=== PATIENT | male | born 1950 | race Caucasian/White ===

== ENCOUNTER 2017-12-29 12:25 | Inpatient (IN) | payer MEDICARE, OTHER ==
[~2017-12-29] VITALS: Ht 177.8 cm; Wt 83.5 kg
[2017-12-29 13:00] VITALS: BP 131/62
[2017-12-29 14:48] LABS: GLUCOMETER DEV NAME(LOC) 2WR 1B; GLUCOSE,POINT OF CARE 85 MG/DL (70-110)
[2017-12-29 15:15] VITALS: BP 139/90
[2017-12-29] MEDS ORDERED: CARV3 PO (15:27)
[2017-12-29] MEDS ORDERED: FERR-89 PO (15:30)
[2017-12-29] MEDS ORDERED: APIX5TAB PO (15:30)
[2017-12-29] MEDS ORDERED: MULT-248 PO (15:35)
[2017-12-29] MEDS ORDERED: BUME1TAB17 PO (15:35)
[2017-12-29] MEDS ORDERED: INSNOV SQ (15:35)
[2017-12-29] MEDS ORDERED: OMEP20 PO (15:35)
[2017-12-29] MEDS ORDERED: DOCUSATE SODIUM 283 MG/5 ML MINI-ENEMA PR PRN (15:45)
[2017-12-29] MEDS ORDERED: DEXTROSE 50%-WATER 25 GM/50 ML SYRINGE IVP PRN (17:15)
[2017-12-29 17:58] LABS: GLUCOMETER DEV NAME(LOC) 2WR 2E; GLUCOSE,POINT OF CARE 144 MG/DL (70-110)
[2017-12-29] MEDS: INSULIN LISPRO 100 UNITS/ML SQ PRN ×2 (19:10→22:13)
[2017-12-29 20:47] VITALS: BP 116/66
[2017-12-29] MEDS: ACETAMINOPHEN 325 MG TABLET PO PRN (20:50)
[2017-12-29] MEDS: APIXABAN 5 MG TABLET PO SCH (20:50)
[2017-12-29] MEDS: SENNA 187 MG TABLET PO SCH (20:50)
[2017-12-29] MEDS: BUMETANIDE 1 MG TABLET PO SCH (20:50)
[2017-12-29] MEDS: CARVEDILOL 3.125 MG TABLET PO SCH (20:50)
[2017-12-29] MEDS: DOCUSATE SODIUM 100 MG CAPSULE PO SCH (20:51)
[2017-12-29] MEDS: INSULIN GLARGINE,HUM.REC.ANLOG 100 UNITS/ML SQ SCH (22:12)
[2017-12-29 22:49] LABS: GLUCOMETER DEV NAME(LOC) 2WR 1B; GLUCOSE,POINT OF CARE 252 MG/DL (70-110)
[2017-12-30 01:00] VITALS: BP 114/59
[2017-12-30] MEDS: ACETAMINOPHEN 325 MG TABLET PO PRN ×5 (01:00→23:28)
[2017-12-30] MEDS: MELATONIN 3 MG TABLET PO PRN ×2 (01:00→21:06)
[2017-12-30] MEDS ORDERED: SIMETHICONE 80 MG CHEWABLE TABLET CHEW PRN (01:15)
[2017-12-30 01:21] LABS: BILIRUBIN,URINE NEGATIVE (NEGATIVE); GLUCOSE, URINE (UA) NEGATIVE (NEGATIVE); KETONES,URINE NEGATIVE (NEGATIVE); LEUKOCYTE ESTERASE ,URINE TRACE (NEGATIVE); NITRATE,URINE NEGATIVE (NEGATIVE); OCCULT BLOOD,URINE LARGE (NEGATIVE); PH,URINE 6.5 (5.0-8.0); PROTEIN,URINE NEGATIVE (NEGATIVE)
[2017-12-30 01:24] LABS: APPEARANCE,URINE HAZY (CLEAR)
[2017-12-30 01:37] LABS: BACTERIA,URINE Rare /HPF (None Seen); YEAST,URINE Few /HPF (None Seen)
[2017-12-30] MEDS: CefTRIAXone SODIUM 1 GM in DEXTROSE 5%-WATER 10 ML IV SCH (05:44)
[2017-12-30] MEDS: OMEPRAZOLE 20 MG CAPSULE PO SCH (05:44)
[2017-12-30 06:04] LABS: BASOPHILS % (AUTO) 0.8 % (0.0-2.0); EOSINOPHILS % (AUTO) 2.9 % (1.0-6.0); HEMATOCRIT 25.1 % (41-53); HEMOGLOBIN 8.8 g/dL (13.5-17.5); LYMPHOCYTES # (AUTO) 1.6 K/uL (1.0-4.8); LYMPHOCYTES % (AUTO) 22.6 % (22.0-44.0); MEAN CORPUSCULAR HEMOGLOBIN 29.2 pg (26.0-34.0); MEAN CORPUSCULAR HGB CONC 34.9 G/dL (31.0-37.0); MEAN CORPUSCULAR VOLUME 84 fL (80-100); MONOCYTES # (AUTO) 0.6 K/uL (0.1-1.0); MONOCYTES % (AUTO) 8.2 % (2.0-9.0); NEUTROPHILS # (AUTO) 4.5 K/uL (1.8-7.7); NEUTROPHILS % (AUTO) 65.5 % (40.0-70.0); PLATELET COUNT (AUTO) 226 K/uL (150-450); RED CELL DISTRIBUTION WIDTH 18.6 % (11.5-14.5)
[2017-12-30 06:09] LABS: GLUCOMETER DEV NAME(LOC) 2WR 2E; GLUCOSE,POINT OF CARE 136 MG/DL (70-110)
[2017-12-30 07:00] LABS: ALANINE AMINOTRANSFERASE 17 U/L (12-78); ALBUMIN 1.9 g/dL (3.4-5.0); ALKALINE PHOSPHATASE 111 U/L (46-116); ANION GAP 5 mmol/L (8-16); ASPARTATE AMINOTRANSFERASE 23 U/L (15-37); BILIRUBIN,TOTAL 0.4 mg/dL (0.1-1.0); CALCIUM, TOTAL 8.3 mg/dL (8.8-10.5); CARBON DIOXIDE 31 mmol/L (22-29); CHLORIDE 101 mmol/L (98-107); CREATININE 1.07 mg/dL (0.60-1.30); GLOMERULAR FILTR. RATE CALC > 60 mL/min (>60); GLUCOSE,RANDOM 133 mg/dL (70-110); POTASSIUM 4.3 mmol/L (3.5-5.1); SODIUM SERUM 137 mmol/L (136-145); TOTAL PROTEIN, SERUM 6.3 g/dL (6.4-8.2); UREA NITROGEN, BLOOD 17 mg/dL (7-18)
[2017-12-30] MEDS: ASCORBIC ACID 500 MG TABLET PO SCH (08:56)
[2017-12-30] MEDS: CARVEDILOL 3.125 MG TABLET PO SCH ×2 (08:56→21:06)
[2017-12-30] MEDS: CHOLECALCIFEROL (VIT D3) 1,000 UNITS TABLET PO SCH (08:56)
[2017-12-30] MEDS: APIXABAN 5 MG TABLET PO SCH ×2 (08:56→21:06)
[2017-12-30] MEDS: BUMETANIDE 1 MG TABLET PO SCH ×2 (08:56→21:05)
[2017-12-30] MEDS: DOCUSATE SODIUM 100 MG CAPSULE PO SCH ×2 (08:56→21:05)
[2017-12-30] MEDS: MULTIVITAMINS, THERAPEUTIC TABLET PO SCH (08:56)
[2017-12-30 10:03] VITALS: BP 132/67
[2017-12-30 12:39] LABS: GLUCOMETER DEV NAME(LOC) 2WR 2E; GLUCOSE,POINT OF CARE 231 MG/DL (70-110)
[2017-12-30] MEDS: INSULIN LISPRO 100 UNITS/ML SQ PRN ×3 (12:39→21:29)
[2017-12-30 15:13] VITALS: BP 129/74
[2017-12-30] MEDS: 0.9% SODIUM CHLORIDE 10 ML SYRINGE IVP SCH ×2 (16:12→23:43)
[2017-12-30 17:44] LABS: GLUCOMETER DEV NAME(LOC) 2WR 2E; GLUCOSE,POINT OF CARE 284 MG/DL (70-110)
[2017-12-30] MEDS: SENNA 187 MG TABLET PO SCH (21:06)
[2017-12-30 21:07] VITALS: BP 124/62
[2017-12-30] MEDS: INSULIN GLARGINE,HUM.REC.ANLOG 100 UNITS/ML SQ SCH (21:22)
[2017-12-30 22:08] LABS: GLUCOMETER DEV NAME(LOC) 2WR 1B; GLUCOSE,POINT OF CARE 198 MG/DL (70-110)
[2017-12-30 23:28] VITALS: BP 111/55
[2017-12-31] MEDS: ACETAMINOPHEN 325 MG TABLET PO PRN (03:45)
[2017-12-31] MEDS: OMEPRAZOLE 20 MG CAPSULE PO SCH (05:50)
[2017-12-31] MEDS: CefTRIAXone SODIUM 1 GM in DEXTROSE 5%-WATER 10 ML IV SCH (05:51)
[2017-12-31 06:24] LABS: GLUCOMETER DEV NAME(LOC) 2WR 1B; GLUCOSE,POINT OF CARE 102 MG/DL (70-110)
[2017-12-31 08:00] VITALS: BP 136/76
[2017-12-31] MEDS ORDERED: HYDROCODONE/ACETAMINOPHEN 5-325 MG TABLET PO PRN (08:00)
[2017-12-31] MEDS: BUMETANIDE 1 MG TABLET PO SCH ×2 (08:09→21:26)
[2017-12-31] MEDS: ASCORBIC ACID 500 MG TABLET PO SCH (08:09)
[2017-12-31] MEDS: APIXABAN 5 MG TABLET PO SCH ×2 (08:09→21:26)
[2017-12-31] MEDS: MULTIVITAMINS, THERAPEUTIC TABLET PO SCH (08:09)
[2017-12-31] MEDS: CARVEDILOL 3.125 MG TABLET PO SCH ×2 (08:09→21:26)
[2017-12-31] MEDS: DOCUSATE SODIUM 100 MG CAPSULE PO SCH ×2 (08:09→21:26)
[2017-12-31] MEDS: 0.9% SODIUM CHLORIDE 10 ML SYRINGE IVP SCH ×2 (08:09→15:14)
[2017-12-31] MEDS: METOLAZONE 5 MG TABLET PO SCH (08:09)
[2017-12-31] MEDS: CHOLECALCIFEROL (VIT D3) 1,000 UNITS TABLET PO SCH (08:10)
[2017-12-31] MEDS: HYDROCODONE/ACETAMINOPHEN 5-325 MG TABLET PO PRN ×3 (08:10→23:03)
[2017-12-31 12:54] LABS: GLUCOMETER DEV NAME(LOC) 2WR 2E; GLUCOSE,POINT OF CARE 237 MG/DL (70-110)
[2017-12-31] MEDS: INSULIN LISPRO 100 UNITS/ML SQ PRN ×2 (14:32→21:43)
[2017-12-31 15:05] VITALS: BP 127/71
[2017-12-31 18:24] LABS: GLUCOMETER DEV NAME(LOC) 2WR 1B; GLUCOSE,POINT OF CARE 178 MG/DL (70-110)
[2017-12-31] MEDS: SENNA 187 MG TABLET PO SCH ×2 (21:00→21:26)
[2017-12-31 21:33] VITALS: BP 129/70
[2017-12-31] MEDS: INSULIN GLARGINE,HUM.REC.ANLOG 100 UNITS/ML SQ SCH (21:42)
[2017-12-31] MEDS: MELATONIN 3 MG TABLET PO PRN (21:44)
[2017-12-31 22:13] LABS: GLUCOMETER DEV NAME(LOC) 2WR 1B; GLUCOSE,POINT OF CARE 245 MG/DL (70-110)
[2018-01-01 00:01] VITALS: BP 99/54
[2018-01-01] MEDS: 0.9% SODIUM CHLORIDE 10 ML SYRINGE IVP SCH ×4 (00:14→23:41)
[2018-01-01] MEDS: ACETAMINOPHEN 325 MG TABLET PO PRN ×3 (01:47→20:49)
[2018-01-01] MEDS: HYDROCODONE/ACETAMINOPHEN 5-325 MG TABLET PO PRN ×2 (03:36→12:54)
[2018-01-01] MEDS: CefTRIAXone SODIUM 1 GM in DEXTROSE 5%-WATER 10 ML IV SCH (05:28)
[2018-01-01] MEDS: OMEPRAZOLE 20 MG CAPSULE PO SCH (05:28)
[2018-01-01 06:00] VITALS: BP 126/71
[2018-01-01 06:34] LABS: GLUCOMETER DEV NAME(LOC) 2WR 2E; GLUCOSE,POINT OF CARE 207 MG/DL (70-110)
[2018-01-01 06:59] LABS: BASOPHILS % (AUTO) 0.9 % (0.0-2.0); EOSINOPHILS % (AUTO) 2.4 % (1.0-6.0); HEMATOCRIT 25.9 % (41-53); HEMOGLOBIN 8.8 g/dL (13.5-17.5); LYMPHOCYTES # (AUTO) 1.7 K/uL (1.0-4.8); LYMPHOCYTES % (AUTO) 20.8 % (22.0-44.0); MEAN CORPUSCULAR HEMOGLOBIN 28.8 pg (26.0-34.0); MEAN CORPUSCULAR VOLUME 85 fL (80-100); MONOCYTES # (AUTO) 0.6 K/uL (0.1-1.0); MONOCYTES % (AUTO) 7.8 % (2.0-9.0); NEUTROPHILS # (AUTO) 5.5 K/uL (1.8-7.7); NEUTROPHILS % (AUTO) 68.1 % (40.0-70.0); PLATELET COUNT (AUTO) 217 K/uL (150-450); RED BLOOD CELL COUNT(AUTO) 3.05 MIL/uL (4.50-5.90); RED CELL DISTRIBUTION WIDTH 19.9 % (11.5-14.5)
[2018-01-01 08:07] VITALS: BP 130/73
[2018-01-01] MEDS: BUMETANIDE 1 MG TABLET PO SCH ×2 (08:19→20:49)
[2018-01-01] MEDS: CHOLECALCIFEROL (VIT D3) 1,000 UNITS TABLET PO SCH (08:19)
[2018-01-01] MEDS: APIXABAN 5 MG TABLET PO SCH ×2 (08:19→20:49)
[2018-01-01] MEDS: ASCORBIC ACID 500 MG TABLET PO SCH (08:19)
[2018-01-01] MEDS: MULTIVITAMINS, THERAPEUTIC TABLET PO SCH (08:19)
[2018-01-01] MEDS: CARVEDILOL 3.125 MG TABLET PO SCH ×2 (08:19→20:50)
[2018-01-01] MEDS: DOCUSATE SODIUM 100 MG CAPSULE PO SCH ×2 (08:19→20:50)
[2018-01-01] MEDS: INSULIN LISPRO 100 UNITS/ML SQ PRN ×3 (08:22→21:28)
[2018-01-01 12:18] LABS: GLUCOMETER DEV NAME(LOC) 2WR 2E; GLUCOSE,POINT OF CARE 96 MG/DL (70-110)
[2018-01-01 15:50] VITALS: BP 110/74
[2018-01-01 17:18] LABS: GLUCOMETER DEV NAME(LOC) 2WR 2E; GLUCOSE,POINT OF CARE 177 MG/DL (70-110)
[2018-01-01] MEDS: CARBAMIDE PEROXIDE 6.5% 15 ML OTIC SOLUTION AU SCH (20:48)
[2018-01-01] MEDS: SENNA 187 MG TABLET PO SCH (20:51)
[2018-01-01 20:59] VITALS: BP 144/72
[2018-01-01] MEDS: INSULIN GLARGINE,HUM.REC.ANLOG 100 UNITS/ML SQ SCH (21:27)
[2018-01-02] MEDS: MELATONIN 3 MG TABLET PO PRN (00:13)
[2018-01-02 00:15] VITALS: BP 136/71
[2018-01-02] MEDS: HYDROCODONE/ACETAMINOPHEN 5-325 MG TABLET PO PRN ×2 (01:09→08:27)
[2018-01-02 03:14] LABS: GLUCOMETER DEV NAME(LOC) 2WR 2E; GLUCOSE,POINT OF CARE 194 MG/DL (70-110)
[2018-01-02] MEDS: OMEPRAZOLE 20 MG CAPSULE PO SCH (05:04)
[2018-01-02] MEDS: CefTRIAXone SODIUM 1 GM in DEXTROSE 5%-WATER 10 ML IV SCH (05:04)
[2018-01-02] MEDS: ACETAMINOPHEN 325 MG TABLET PO PRN (05:14)
[2018-01-02 05:54] LABS: GLUCOMETER DEV NAME(LOC) 2WR 2E; GLUCOSE,POINT OF CARE 92 MG/DL (70-110)
[2018-01-02] MEDS ORDERED: DiphenhydrAMINE HCL 25 MG CAPSULE PO PRN (07:45)
[2018-01-02 07:56] VITALS: BP 136/75
[2018-01-02] MEDS: CARBAMIDE PEROXIDE 6.5% 15 ML OTIC SOLUTION AU SCH ×2 (08:13→21:40)
[2018-01-02] MEDS: BUMETANIDE 1 MG TABLET PO SCH ×2 (08:13→21:40)
[2018-01-02] MEDS: APIXABAN 5 MG TABLET PO SCH ×2 (08:13→21:40)
[2018-01-02] MEDS: METOLAZONE 5 MG TABLET PO SCH (08:13)
[2018-01-02] MEDS: MULTIVITAMINS, THERAPEUTIC TABLET PO SCH (08:13)
[2018-01-02] MEDS: CHOLECALCIFEROL (VIT D3) 1,000 UNITS TABLET PO SCH (08:13)
[2018-01-02] MEDS: CARVEDILOL 3.125 MG TABLET PO SCH ×2 (08:13→21:40)
[2018-01-02] MEDS: DOCUSATE SODIUM 100 MG CAPSULE PO SCH ×2 (08:13→21:40)
[2018-01-02] MEDS: 0.9% SODIUM CHLORIDE 10 ML SYRINGE IVP SCH ×3 (08:14→23:28)
[2018-01-02] MEDS: ASCORBIC ACID 500 MG TABLET PO SCH (08:15)
[2018-01-02] MEDS ORDERED: HYDROCODONE/ACETAMINOPHEN 10-325 MG TABLET PO PRN (10:00)
[2018-01-02 12:54] LABS: GLUCOMETER DEV NAME(LOC) 2WR 1B; GLUCOSE,POINT OF CARE 144 MG/DL (70-110)
[2018-01-02] MEDS: INSULIN LISPRO 100 UNITS/ML SQ PRN ×2 (13:04→22:01)
[2018-01-02] MEDS: HYDROCODONE/ACETAMINOPHEN 10-325 MG TABLET PO PRN ×2 (13:29→23:04)
[2018-01-02 15:22] VITALS: BP 110/60
[2018-01-02 18:29] LABS: GLUCOMETER DEV NAME(LOC) 2WR 2E; GLUCOSE,POINT OF CARE 119 MG/DL (70-110)
[2018-01-02] MEDS: TraZODone HCL 100 MG TABLET PO SCH (21:40)
[2018-01-02] MEDS: SENNA 187 MG TABLET PO SCH (21:40)
[2018-01-02 21:44] VITALS: BP 137/77
[2018-01-02] MEDS: INSULIN GLARGINE,HUM.REC.ANLOG 100 UNITS/ML SQ SCH (21:59)
[2018-01-02 22:14] LABS: GLUCOMETER DEV NAME(LOC) 2WR 2E; GLUCOSE,POINT OF CARE 228 MG/DL (70-110)
[2018-01-02 23:59] VITALS: BP 139/67
[2018-01-03] MEDS: HYDROCODONE/ACETAMINOPHEN 10-325 MG TABLET PO PRN ×2 (03:24→10:19)
[2018-01-03] MEDS: CefTRIAXone SODIUM 1 GM in DEXTROSE 5%-WATER 10 ML IV SCH (05:08)
[2018-01-03] MEDS: OMEPRAZOLE 20 MG CAPSULE PO SCH (05:53)
[2018-01-03 06:29] LABS: GLUCOMETER DEV NAME(LOC) 2WR 1B; GLUCOSE,POINT OF CARE 80 MG/DL (70-110)
[2018-01-03 08:30] VITALS: BP 131/72
[2018-01-03] MEDS: DOCUSATE SODIUM 100 MG CAPSULE PO SCH ×2 (09:28→20:19)
[2018-01-03] MEDS: MULTIVITAMINS, THERAPEUTIC TABLET PO SCH (09:28)
[2018-01-03] MEDS: 0.9% SODIUM CHLORIDE 10 ML SYRINGE IVP SCH ×3 (09:28→23:24)
[2018-01-03] MEDS: CHOLECALCIFEROL (VIT D3) 1,000 UNITS TABLET PO SCH (09:28)
[2018-01-03] MEDS: CARVEDILOL 3.125 MG TABLET PO SCH ×2 (09:28→20:19)
[2018-01-03] MEDS: ASCORBIC ACID 500 MG TABLET PO SCH (09:28)
[2018-01-03] MEDS: APIXABAN 5 MG TABLET PO SCH ×2 (09:28→20:19)
[2018-01-03] MEDS: BUMETANIDE 1 MG TABLET PO SCH ×2 (09:28→20:19)
[2018-01-03] MEDS: CARBAMIDE PEROXIDE 6.5% 15 ML OTIC SOLUTION AU SCH ×2 (09:28→20:19)
[2018-01-03] MEDS ORDERED: SODIUM CL IRRIG SOLN BOTTLE 250 ML IRRIG ONE (09:33)
[2018-01-03 13:12] LABS: % IRON SATURATION 11.6 % (30-44); IRON, SERUM 34 mcg/dL (50-175); TOTAL IRON BINDING CAPACITY 292 mcg/dL (250-450)
[2018-01-03 13:22] LABS: CHOL/HDL RATIO 3.3 (4.2-7.3); CHOLESTEROL 118 mg/dL (131-200); HDL CHOLESTEROL 36 mg/dL (40-60); LDL CHOL (CALC.) 66 mg/dL (0-130); THYROID STIMULATING HORMONE 4.01 uIU/mL (0.36-3.74); TRIGLYCERIDES 82 mg/dL (15-150)
[2018-01-03 13:24] LABS: B-TYPE NATRIURETIC PEPTIDE 368 pg/mL (0-100)
[2018-01-03 13:28] LABS: GLUCOMETER DEV NAME(LOC) 2WR 2E; GLUCOSE,POINT OF CARE 204 MG/DL (70-110)
[2018-01-03] MEDS: DESLORATADINE 5 MG PO SCH (13:45)
[2018-01-03 13:53] LABS: FOLATE SERUM 23.9 ng/mL (5.4-)
[2018-01-03 15:36] VITALS: BP 111/74
[2018-01-03 18:04] LABS: GLUCOMETER DEV NAME(LOC) 2WR 1B; GLUCOSE,POINT OF CARE 179 MG/DL (70-110)
[2018-01-03] MEDS: INSULIN LISPRO 100 UNITS/ML SQ PRN ×2 (19:08→20:31)
[2018-01-03 19:48] VITALS: BP 126/65
[2018-01-03] MEDS: SENNA 187 MG TABLET PO SCH (20:19)
[2018-01-03] MEDS: GABAPENTIN 300 MG CAPSULE PO SCH (20:19)
[2018-01-03] MEDS: TraZODone HCL 100 MG TABLET PO SCH (20:19)
[2018-01-03] MEDS: INSULIN GLARGINE,HUM.REC.ANLOG 100 UNITS/ML SQ SCH (20:30)
[2018-01-03 22:33] LABS: GLUCOMETER DEV NAME(LOC) 2WR 1B; GLUCOSE,POINT OF CARE 264 MG/DL (70-110)
[2018-01-04 00:45] VITALS: BP 116/66
[2018-01-04] MEDS: HYDROCODONE/ACETAMINOPHEN 10-325 MG TABLET PO PRN ×4 (00:45→23:45)
[2018-01-04] MEDS: CefTRIAXone SODIUM 1 GM in DEXTROSE 5%-WATER 10 ML IV SCH (05:29)
[2018-01-04] MEDS: OMEPRAZOLE 20 MG CAPSULE PO SCH (06:08)
[2018-01-04 06:53] LABS: GLUCOMETER DEV NAME(LOC) 2WR 2E; GLUCOSE,POINT OF CARE 52 MG/DL (70-110)
[2018-01-04 06:53] LABS: GLUCOMETER DEV NAME(LOC) 2WR 2E; GLUCOSE,POINT OF CARE 79 MG/DL (70-110)
[2018-01-04 07:53] VITALS: BP 125/82
[2018-01-04] MEDS: APIXABAN 5 MG TABLET PO SCH ×2 (11:09→20:59)
[2018-01-04] MEDS: ASCORBIC ACID 500 MG TABLET PO SCH (11:09)
[2018-01-04] MEDS: DOCUSATE SODIUM 100 MG CAPSULE PO SCH ×2 (11:09→21:00)
[2018-01-04] MEDS: CHOLECALCIFEROL (VIT D3) 1,000 UNITS TABLET PO SCH (11:09)
[2018-01-04] MEDS: MULTIVITAMINS, THERAPEUTIC TABLET PO SCH (11:10)
[2018-01-04] MEDS: BUMETANIDE 1 MG TABLET PO SCH ×2 (11:10→20:58)
[2018-01-04] MEDS: CARVEDILOL 3.125 MG TABLET PO SCH ×2 (11:10→20:58)
[2018-01-04] MEDS: ACETAMINOPHEN 325 MG TABLET PO PRN (11:19)
[2018-01-04] MEDS: 0.9% SODIUM CHLORIDE 10 ML SYRINGE IVP SCH ×3 (11:21→23:30)
[2018-01-04] MEDS ORDERED: SOD FERRIC GLUC COMPLX/SUCROSE 125 MG in SODIUM CHLORIDE 0.9% 100 ML IV ONE (12:30)
[2018-01-04 13:29] LABS: GLUCOMETER DEV NAME(LOC) 2WR 1B; GLUCOSE,POINT OF CARE 218 MG/DL (70-110)
[2018-01-04] MEDS ORDERED: SODIUM CHLORIDE 0.9% 100 ML ONE (14:18)
[2018-01-04] MEDS: DESLORATADINE 5 MG PO SCH (14:38)
[2018-01-04 15:20] VITALS: BP 121/73
[2018-01-04 18:29] LABS: GLUCOMETER DEV NAME(LOC) 2WR 1B; GLUCOSE,POINT OF CARE 171 MG/DL (70-110)
[2018-01-04] MEDS: INSULIN LISPRO 100 UNITS/ML SQ PRN ×2 (18:43→21:08)
[2018-01-04 20:34] LABS: GLUCOMETER DEV NAME(LOC) 2WR 2E; GLUCOSE,POINT OF CARE 222 MG/DL (70-110)
[2018-01-04 20:40] VITALS: BP 120/66
[2018-01-04] MEDS: GABAPENTIN 300 MG CAPSULE PO SCH (20:58)
[2018-01-04] MEDS: TraZODone HCL 100 MG TABLET PO SCH (20:59)
[2018-01-04] MEDS: SENNA 187 MG TABLET PO SCH (21:00)
[2018-01-04] MEDS ORDERED: INSULIN GLARGINE,HUM.REC.ANLOG 100 UNITS/ML SQ SCH (21:00)
[2018-01-04] MEDS: INSULIN GLARGINE,HUM.REC.ANLOG 100 UNITS/ML SQ SCH (21:07)
[2018-01-04 23:38] VITALS: BP 114/63
[2018-01-04 23:45] VITALS: BP 114/63
[2018-01-05] MEDS: CefTRIAXone SODIUM 1 GM in DEXTROSE 5%-WATER 10 ML IV SCH (05:29)
[2018-01-05] MEDS: HYDROCODONE/ACETAMINOPHEN 10-325 MG TABLET PO PRN (05:49)
[2018-01-05] MEDS: OMEPRAZOLE 20 MG CAPSULE PO SCH (05:50)
[2018-01-05 05:58] LABS: GLUCOMETER DEV NAME(LOC) 2WR 2E; GLUCOSE,POINT OF CARE 40 MG/DL (70-110)
[2018-01-05 05:58] LABS: GLUCOMETER DEV NAME(LOC) 2WR 2E; GLUCOSE,POINT OF CARE 179 MG/DL (70-110)
[2018-01-05 06:46] LABS: BASOPHILS % (AUTO) 0.8 % (0.0-2.0); EOSINOPHILS % (AUTO) 2.9 % (1.0-6.0); HEMATOCRIT 29.3 % (41-53); LYMPHOCYTES # (AUTO) 1.6 K/uL (1.0-4.8); LYMPHOCYTES % (AUTO) 22.8 % (22.0-44.0); MEAN CORPUSCULAR HEMOGLOBIN 28.9 pg (26.0-34.0); MEAN CORPUSCULAR VOLUME 85 fL (80-100); MONOCYTES # (AUTO) 0.5 K/uL (0.1-1.0); MONOCYTES % (AUTO) 7.3 % (2.0-9.0); NEUTROPHILS # (AUTO) 4.8 K/uL (1.8-7.7); NEUTROPHILS % (AUTO) 66.2 % (40.0-70.0); PLATELET COUNT (AUTO) 170 K/uL (150-450); RED BLOOD CELL COUNT(AUTO) 3.44 MIL/uL (4.50-5.90); RED CELL DISTRIBUTION WIDTH 20.4 % (11.5-14.5)
[2018-01-05 07:00] LABS: CALCIUM, TOTAL 8.6 mg/dL (8.8-10.5); CREATININE 1.25 mg/dL (0.60-1.30); POTASSIUM 3.7 mmol/L (3.5-5.1)
[2018-01-05 07:30] VITALS: BP 109/66
[2018-01-05] MEDS: MetFORMIN HCL 500 MG TABLET PO SCH ×2 (07:30→17:30)
[2018-01-05] MEDS: ASCORBIC ACID 500 MG TABLET PO SCH (08:24)
[2018-01-05] MEDS: BUMETANIDE 1 MG TABLET PO SCH ×2 (08:24→21:38)
[2018-01-05] MEDS: DESLORATADINE 5 MG PO SCH (08:25)
[2018-01-05] MEDS: DOCUSATE SODIUM 100 MG CAPSULE PO SCH ×2 (08:25→21:00)
[2018-01-05] MEDS: CARVEDILOL 3.125 MG TABLET PO SCH ×2 (08:25→21:39)
[2018-01-05] MEDS: MULTIVITAMINS, THERAPEUTIC TABLET PO SCH (08:25)
[2018-01-05] MEDS: APIXABAN 5 MG TABLET PO SCH ×2 (08:25→21:39)
[2018-01-05] MEDS: CHOLECALCIFEROL (VIT D3) 1,000 UNITS TABLET PO SCH (08:25)
[2018-01-05] MEDS: 0.9% SODIUM CHLORIDE 10 ML SYRINGE IVP SCH ×3 (08:26→23:27)
[2018-01-05 08:34] LABS: GLUCOMETER DEV NAME(LOC) 2WR 2E; GLUCOSE,POINT OF CARE 102 MG/DL (70-110)
[2018-01-05 12:39] LABS: GLUCOMETER DEV NAME(LOC) 2WR 1B; GLUCOSE,POINT OF CARE 103 MG/DL (70-110)
[2018-01-05 15:44] VITALS: BP 120/65
[2018-01-05 18:04] LABS: GLUCOMETER DEV NAME(LOC) 2WR 1B; GLUCOSE,POINT OF CARE 209 MG/DL (70-110)
[2018-01-05] MEDS: INSULIN LISPRO 100 UNITS/ML SQ PRN ×2 (18:29→21:49)
[2018-01-05] MEDS: SENNA 187 MG TABLET PO SCH (21:00)
[2018-01-05 21:31] VITALS: BP 121/69
[2018-01-05] MEDS: TraZODone HCL 100 MG TABLET PO SCH (21:39)
[2018-01-05] MEDS: GABAPENTIN 300 MG CAPSULE PO SCH (21:39)
[2018-01-05] MEDS: INSULIN GLARGINE,HUM.REC.ANLOG 100 UNITS/ML SQ SCH (21:48)
[2018-01-06] VITALS: BP 111/54
[2018-01-06 04:29] LABS: GLUCOMETER DEV NAME(LOC) 2WR 1B; GLUCOSE,POINT OF CARE 226 MG/DL (70-110)
[2018-01-06] MEDS: OMEPRAZOLE 20 MG CAPSULE PO SCH (05:27)
[2018-01-06] MEDS: CefTRIAXone SODIUM 1 GM in DEXTROSE 5%-WATER 10 ML IV SCH (05:27)
[2018-01-06 06:24] LABS: GLUCOMETER DEV NAME(LOC) 2WR 1B; GLUCOSE,POINT OF CARE 64 MG/DL (70-110)
[2018-01-06 06:29] LABS: BASOPHILS % (AUTO) 0.7 % (0.0-2.0); EOSINOPHILS % (AUTO) 1.9 % (1.0-6.0); HEMATOCRIT 26.7 % (41-53); HEMOGLOBIN 9.2 g/dL (13.5-17.5); LYMPHOCYTES # (AUTO) 1.7 K/uL (1.0-4.8); LYMPHOCYTES % (AUTO) 22.1 % (22.0-44.0); MEAN CORPUSCULAR HEMOGLOBIN 29.1 pg (26.0-34.0); MEAN CORPUSCULAR HGB CONC 34.4 G/dL (31.0-37.0); MEAN CORPUSCULAR VOLUME 84 fL (80-100); MONOCYTES # (AUTO) 0.6 K/uL (0.1-1.0); MONOCYTES % (AUTO) 7.4 % (2.0-9.0); NEUTROPHILS # (AUTO) 5.3 K/uL (1.8-7.7); NEUTROPHILS % (AUTO) 67.9 % (40.0-70.0); PLATELET COUNT (AUTO) 154 K/uL (150-450); RED BLOOD CELL COUNT(AUTO) 3.17 MIL/uL (4.50-5.90); RED CELL DISTRIBUTION WIDTH 20.6 % (11.5-14.5)
[2018-01-06 06:35] LABS: INR 1.3 (0.9-1.1); PROTHROMBIN TIME 13.3 SEC (9.4-11.6)
[2018-01-06 06:45] LABS: GLUCOMETER DEV NAME(LOC) 2WR 2E; GLUCOSE,POINT OF CARE 192 MG/DL (70-110)
[2018-01-06 06:48] LABS: ALBUMIN 2.3 g/dL (3.4-5.0); BILIRUBIN,TOTAL 0.4 mg/dL (0.1-1.0); CALCIUM, TOTAL 8.6 mg/dL (8.8-10.5); CREATININE 1.35 mg/dL (0.60-1.30); MAGNESIUM 1.9 mg/dL (1.80-2.40); POTASSIUM 3.7 mmol/L (3.5-5.1)
[2018-01-06] MEDS: MetFORMIN HCL 500 MG TABLET PO SCH ×2 (07:30→17:26)
[2018-01-06 07:50] VITALS: BP 105/54
[2018-01-06] MEDS: 0.9% SODIUM CHLORIDE 10 ML SYRINGE IVP SCH ×2 (09:29→17:27)
[2018-01-06 09:30] LABS: APPEARANCE,URINE CLEAR (CLEAR); BILIRUBIN,URINE NEGATIVE (NEGATIVE); GLUCOSE, URINE (UA) NEGATIVE (NEGATIVE); KETONES,URINE NEGATIVE (NEGATIVE); LEUKOCYTE ESTERASE ,URINE NEGATIVE (NEGATIVE); NITRATE,URINE NEGATIVE (NEGATIVE); OCCULT BLOOD,URINE SMALL (NEGATIVE); PROTEIN,URINE NEGATIVE (NEGATIVE); UROBILINOGEN,URINE 0.2 mg/dL (<=1.0)
[2018-01-06] MEDS: APIXABAN 5 MG TABLET PO SCH ×2 (09:30→21:55)
[2018-01-06] MEDS: CHOLECALCIFEROL (VIT D3) 1,000 UNITS TABLET PO SCH (09:30)
[2018-01-06] MEDS: ASCORBIC ACID 500 MG TABLET PO SCH (09:30)
[2018-01-06] MEDS: BUMETANIDE 1 MG TABLET PO SCH ×2 (09:30→21:54)
[2018-01-06] MEDS: DESLORATADINE 5 MG PO SCH (09:30)
[2018-01-06] MEDS: MULTIVITAMINS, THERAPEUTIC TABLET PO SCH (09:30)
[2018-01-06] MEDS: CARVEDILOL 3.125 MG TABLET PO SCH ×2 (09:30→21:55)
[2018-01-06] MEDS: DOCUSATE SODIUM 100 MG CAPSULE PO SCH ×2 (09:30→21:00)
[2018-01-06 09:33] LABS: BACTERIA,URINE Rare /HPF (None Seen); YEAST,URINE Moderate /HPF (None Seen)
[2018-01-06 09:34] LABS: HYALINE CASTS, URINE 0-2 /LPF (None Seen); SQUAMOUS EPITHELIAL CELL,UR Few /LPF (None Seen)
[2018-01-06] MEDS: INSULIN LISPRO 100 UNITS/ML SQ PRN ×3 (13:05→22:01)
[2018-01-06 13:39] LABS: GLUCOMETER DEV NAME(LOC) 2WR 2E; GLUCOSE,POINT OF CARE 233 MG/DL (70-110)
[2018-01-06 15:30] VITALS: BP 95/58
[2018-01-06] MEDS ORDERED: SODIUM CL IRRIG SOLN BOTTLE 250 ML IRRIG ONE (15:38)
[2018-01-06 19:13] LABS: GLUCOMETER DEV NAME(LOC) 2WR 2E; GLUCOSE,POINT OF CARE 194 MG/DL (70-110)
[2018-01-06] MEDS: SENNA 187 MG TABLET PO SCH (21:00)
[2018-01-06] MEDS: GABAPENTIN 300 MG CAPSULE PO SCH (21:54)
[2018-01-06] MEDS: CARBAMIDE PEROXIDE 6.5% 15 ML OTIC SOLUTION AU SCH (21:54)
[2018-01-06] MEDS: TraZODone HCL 100 MG TABLET PO SCH (21:55)
[2018-01-06] MEDS: INSULIN GLARGINE,HUM.REC.ANLOG 100 UNITS/ML SQ SCH (22:00)
[2018-01-06 22:41] LABS: GLUCOMETER DEV NAME(LOC) 2WR 1B; GLUCOSE,POINT OF CARE 293 MG/DL (70-110)
[2018-01-07] MEDS: 0.9% SODIUM CHLORIDE 10 ML SYRINGE IVP SCH ×4 (00:46→23:54)
[2018-01-07 05:00] VITALS: BP 108/57
[2018-01-07] MEDS: OMEPRAZOLE 20 MG CAPSULE PO SCH (05:43)
[2018-01-07] MEDS: CefTRIAXone SODIUM 1 GM in DEXTROSE 5%-WATER 10 ML IV SCH (05:43)
[2018-01-07 05:49] LABS: GLUCOMETER DEV NAME(LOC) 2WR 1B; GLUCOSE,POINT OF CARE 109 MG/DL (70-110)
[2018-01-07 07:53] VITALS: BP 123/67
[2018-01-07] MEDS: ASCORBIC ACID 500 MG TABLET PO SCH (08:13)
[2018-01-07] MEDS: APIXABAN 5 MG TABLET PO SCH ×2 (08:14→20:50)
[2018-01-07] MEDS: MULTIVITAMINS, THERAPEUTIC TABLET PO SCH (08:14)
[2018-01-07] MEDS: CHOLECALCIFEROL (VIT D3) 1,000 UNITS TABLET PO SCH (08:14)
[2018-01-07] MEDS: BUMETANIDE 1 MG TABLET PO SCH ×2 (08:14→20:50)
[2018-01-07] MEDS: DOCUSATE SODIUM 100 MG CAPSULE PO SCH ×3 (08:14→20:51)
[2018-01-07] MEDS: CARVEDILOL 3.125 MG TABLET PO SCH ×2 (08:14→20:50)
[2018-01-07] MEDS: MetFORMIN HCL 500 MG TABLET PO SCH ×2 (08:15→16:48)
[2018-01-07] MEDS: CARBAMIDE PEROXIDE 6.5% 15 ML OTIC SOLUTION AU SCH ×2 (08:16→21:26)
[2018-01-07 08:24] LABS: HIV 1-2 SCREEN 4TH GEN W/RFLX Non Reactive (Non Reactive)
[2018-01-07] MEDS: DESLORATADINE 5 MG PO SCH (09:26)
[2018-01-07 13:33] LABS: GLUCOMETER DEV NAME(LOC) 2WR 1B; GLUCOSE,POINT OF CARE 186 MG/DL (70-110)
[2018-01-07] MEDS: INSULIN LISPRO 100 UNITS/ML SQ PRN ×3 (14:25→20:57)
[2018-01-07 15:24] VITALS: BP 150/87
[2018-01-07 17:58] LABS: GLUCOMETER DEV NAME(LOC) 2WR 2E; GLUCOSE,POINT OF CARE 332 MG/DL (70-110)
[2018-01-07 20:43] VITALS: BP 136/76
[2018-01-07] MEDS: TraZODone HCL 100 MG TABLET PO SCH (20:50)
[2018-01-07] MEDS: GABAPENTIN 300 MG CAPSULE PO SCH (20:50)
[2018-01-07] MEDS: SENNA 187 MG TABLET PO SCH (20:51)
[2018-01-07] MEDS: INSULIN GLARGINE,HUM.REC.ANLOG 100 UNITS/ML SQ SCH (20:56)
[2018-01-07 21:28] LABS: GLUCOMETER DEV NAME(LOC) 2WR 2E; GLUCOSE,POINT OF CARE 264 MG/DL (70-110)
[2018-01-08 02:00] VITALS: BP 111/63
[2018-01-08] MEDS: OMEPRAZOLE 20 MG CAPSULE PO SCH (06:20)
[2018-01-08] MEDS: CefTRIAXone SODIUM 1 GM in DEXTROSE 5%-WATER 10 ML IV SCH (06:20)
[2018-01-08 06:24] LABS: GLUCOMETER DEV NAME(LOC) 2WR 1B; GLUCOSE,POINT OF CARE 67 MG/DL (70-110)
[2018-01-08 06:36] LABS: ANION GAP 2 mmol/L (8-16); CALCIUM, TOTAL 8.9 mg/dL (8.8-10.5); CARBON DIOXIDE 35 mmol/L (22-29); CHLORIDE 101 mmol/L (98-107); CREATININE 1.09 mg/dL (0.60-1.30); GLOMERULAR FILTR. RATE CALC > 60 mL/min (>60); GLUCOSE,RANDOM 70 mg/dL (70-110); POTASSIUM 3.7 mmol/L (3.5-5.1); SODIUM SERUM 138 mmol/L (136-145); UREA NITROGEN, BLOOD 33 mg/dL (7-18)
[2018-01-08 06:59] LABS: BASOPHILS % (AUTO) 0.8 % (0.0-2.0); EOSINOPHILS % (AUTO) 2.9 % (1.0-6.0); HEMATOCRIT 26.3 % (41-53); HEMOGLOBIN 8.8 g/dL (13.5-17.5); LYMPHOCYTES # (AUTO) 1.9 K/uL (1.0-4.8); LYMPHOCYTES % (AUTO) 26.2 % (22.0-44.0); MEAN CORPUSCULAR HEMOGLOBIN 28.7 pg (26.0-34.0); MEAN CORPUSCULAR HGB CONC 33.7 G/dL (31.0-37.0); MEAN CORPUSCULAR VOLUME 85 fL (80-100); MONOCYTES # (AUTO) 0.6 K/uL (0.1-1.0); NEUTROPHILS # (AUTO) 4.3 K/uL (1.8-7.7); NEUTROPHILS % (AUTO) 61.1 % (40.0-70.0); PLATELET COUNT (AUTO) 152 K/uL (150-450); RED BLOOD CELL COUNT(AUTO) 3.08 MIL/uL (4.50-5.90); RED CELL DISTRIBUTION WIDTH 20.4 % (11.5-14.5)
[2018-01-08 07:05] VITALS: BP 111/57
[2018-01-08] MEDS: DOCUSATE SODIUM 100 MG CAPSULE PO SCH ×4 (09:00→21:05)
[2018-01-08] MEDS: MetFORMIN HCL 500 MG TABLET PO SCH ×2 (09:29→18:22)
[2018-01-08] MEDS: CARBAMIDE PEROXIDE 6.5% 15 ML OTIC SOLUTION AU SCH ×2 (09:29→21:05)
[2018-01-08] MEDS: CHOLECALCIFEROL (VIT D3) 1,000 UNITS TABLET PO SCH (09:29)
[2018-01-08] MEDS: DESLORATADINE 5 MG PO SCH (09:29)
[2018-01-08] MEDS: BUMETANIDE 1 MG TABLET PO SCH ×2 (09:30→21:05)
[2018-01-08] MEDS: MULTIVITAMINS, THERAPEUTIC TABLET PO SCH (09:30)
[2018-01-08] MEDS: ASCORBIC ACID 500 MG TABLET PO SCH (09:30)
[2018-01-08] MEDS: CARVEDILOL 3.125 MG TABLET PO SCH ×2 (09:30→21:05)
[2018-01-08] MEDS: APIXABAN 5 MG TABLET PO SCH ×2 (09:30→21:05)
[2018-01-08] MEDS: 0.9% SODIUM CHLORIDE 10 ML SYRINGE IVP SCH ×3 (09:31→23:16)
[2018-01-08 12:34] LABS: GLUCOMETER DEV NAME(LOC) 2WR 1B; GLUCOSE,POINT OF CARE 234 MG/DL (70-110)
[2018-01-08] MEDS: INSULIN LISPRO 100 UNITS/ML SQ PRN ×3 (12:40→21:06)
[2018-01-08 15:00] VITALS: BP 120/75
[2018-01-08 20:14] LABS: GLUCOMETER DEV NAME(LOC) 2WR 1B; GLUCOSE,POINT OF CARE 335 MG/DL (70-110)
[2018-01-08 20:20] VITALS: BP 118/70
[2018-01-08] MEDS: SENNA 187 MG TABLET PO SCH ×2 (21:00→21:05)
[2018-01-08] MEDS: TraZODone HCL 100 MG TABLET PO SCH (21:05)
[2018-01-08] MEDS: GABAPENTIN 300 MG CAPSULE PO SCH (21:05)
[2018-01-08] MEDS: INSULIN GLARGINE,HUM.REC.ANLOG 100 UNITS/ML SQ SCH (21:07)
[2018-01-08 21:49] LABS: GLUCOMETER DEV NAME(LOC) 2WR 1B; GLUCOSE,POINT OF CARE 300 MG/DL (70-110)
[2018-01-09] VITALS: BP 126/66
[2018-01-09] MEDS: OMEPRAZOLE 20 MG CAPSULE PO SCH (06:10)
[2018-01-09] MEDS: CefTRIAXone SODIUM 1 GM in DEXTROSE 5%-WATER 10 ML IV SCH (06:10)
[2018-01-09 06:13] LABS: GLUCOMETER DEV NAME(LOC) 2WR 2E; GLUCOSE,POINT OF CARE 140 MG/DL (70-110)
[2018-01-09 07:55] VITALS: BP 120/65
[2018-01-09] MEDS: CHOLECALCIFEROL (VIT D3) 1,000 UNITS TABLET PO SCH (08:58)
[2018-01-09] MEDS: BUMETANIDE 1 MG TABLET PO SCH ×2 (08:58→21:14)
[2018-01-09] MEDS: MetFORMIN HCL 500 MG TABLET PO SCH ×2 (08:58→17:18)
[2018-01-09] MEDS: DESLORATADINE 5 MG PO SCH (08:58)
[2018-01-09] MEDS: APIXABAN 5 MG TABLET PO SCH ×2 (08:58→21:14)
[2018-01-09] MEDS: MULTIVITAMINS, THERAPEUTIC TABLET PO SCH (08:58)
[2018-01-09] MEDS: CARVEDILOL 3.125 MG TABLET PO SCH ×2 (08:58→21:14)
[2018-01-09] MEDS: ASCORBIC ACID 500 MG TABLET PO SCH (08:58)
[2018-01-09] MEDS: DOCUSATE SODIUM 100 MG CAPSULE PO SCH ×3 (08:58→21:14)
[2018-01-09] MEDS: 0.9% SODIUM CHLORIDE 10 ML SYRINGE IVP SCH ×2 (08:59→17:18)
[2018-01-09 12:19] LABS: GLUCOMETER DEV NAME(LOC) 2WR 2E; GLUCOSE,POINT OF CARE 231 MG/DL (70-110)
[2018-01-09] MEDS: INSULIN LISPRO 100 UNITS/ML SQ PRN ×3 (13:35→21:15)
[2018-01-09 15:28] VITALS: BP 137/68
[2018-01-09 18:14] LABS: GLUCOMETER DEV NAME(LOC) 2WR 2E; GLUCOSE,POINT OF CARE 315 MG/DL (70-110)
[2018-01-09 21:06] VITALS: BP 118/66
[2018-01-09] MEDS: TraZODone HCL 100 MG TABLET PO SCH (21:14)
[2018-01-09] MEDS: GABAPENTIN 300 MG CAPSULE PO SCH (21:14)
[2018-01-09] MEDS: SENNA 187 MG TABLET PO SCH ×2 (21:14→21:36)
[2018-01-09] MEDS: INSULIN GLARGINE,HUM.REC.ANLOG 100 UNITS/ML SQ SCH (21:15)
[2018-01-09 22:14] LABS: GLUCOMETER DEV NAME(LOC) 2WR 2E; GLUCOSE,POINT OF CARE 297 MG/DL (70-110)
[2018-01-10] MEDS: 0.9% SODIUM CHLORIDE 10 ML SYRINGE IVP SCH (00:45)
[2018-01-10 00:50] VITALS: BP 127/66
[2018-01-10] MEDS: OMEPRAZOLE 20 MG CAPSULE PO SCH (06:05)
[2018-01-10 06:14] LABS: GLUCOMETER DEV NAME(LOC) 2WR 1B; GLUCOSE,POINT OF CARE 164 MG/DL (70-110)
[2018-01-10 07:35] VITALS: BP 110/61
[2018-01-10] MEDS: MetFORMIN HCL 500 MG TABLET PO SCH ×2 (08:37→17:03)
[2018-01-10] MEDS: ASCORBIC ACID 500 MG TABLET PO SCH (08:37)
[2018-01-10] MEDS: APIXABAN 5 MG TABLET PO SCH ×2 (08:37→20:42)
[2018-01-10] MEDS: MULTIVITAMINS, THERAPEUTIC TABLET PO SCH (08:37)
[2018-01-10] MEDS: CHOLECALCIFEROL (VIT D3) 1,000 UNITS TABLET PO SCH (08:37)
[2018-01-10] MEDS: CARVEDILOL 3.125 MG TABLET PO SCH ×2 (08:37→20:42)
[2018-01-10] MEDS: DESLORATADINE 5 MG PO SCH (08:38)
[2018-01-10] MEDS: BUMETANIDE 1 MG TABLET PO SCH ×2 (08:38→20:42)
[2018-01-10] MEDS: DOCUSATE SODIUM 100 MG CAPSULE PO SCH ×2 (08:45→20:58)
[2018-01-10] MEDS: INSULIN LISPRO 100 UNITS/ML SQ PRN ×4 (08:45→20:52)
[2018-01-10 12:13] LABS: GLUCOMETER DEV NAME(LOC) 2WR 2E; GLUCOSE,POINT OF CARE 173 MG/DL (70-110)
[2018-01-10 17:39] VITALS: BP 112/63
[2018-01-10 18:18] LABS: GLUCOMETER DEV NAME(LOC) 2WR 2E; GLUCOSE,POINT OF CARE 233 MG/DL (70-110)
[2018-01-10 20:40] VITALS: BP 127/70
[2018-01-10] MEDS: TraZODone HCL 100 MG TABLET PO SCH (20:42)
[2018-01-10] MEDS: GABAPENTIN 300 MG CAPSULE PO SCH (20:42)
[2018-01-10] MEDS: INSULIN GLARGINE,HUM.REC.ANLOG 100 UNITS/ML SQ SCH (20:51)
[2018-01-10 21:53] LABS: GLUCOMETER DEV NAME(LOC) 2WR 2E; GLUCOSE,POINT OF CARE 282 MG/DL (70-110)
[2018-01-10 23:32] VITALS: BP 133/64
[2018-01-11] MEDS: ACETAMINOPHEN 325 MG TABLET PO PRN (02:10)
[2018-01-11 06:13] LABS: GLUCOMETER DEV NAME(LOC) 2WR 2E; GLUCOSE,POINT OF CARE 192 MG/DL (70-110)
[2018-01-11] MEDS: OMEPRAZOLE 20 MG CAPSULE PO SCH (06:25)
[2018-01-11 08:00] VITALS: BP 112/64
[2018-01-11] MEDS: BUMETANIDE 1 MG TABLET PO SCH ×2 (08:55→21:33)
[2018-01-11] MEDS: MULTIVITAMINS, THERAPEUTIC TABLET PO SCH (08:56)
[2018-01-11] MEDS: FERROUS SULFATE 325 MG EC TABLET PO SCH (08:56)
[2018-01-11] MEDS: DESLORATADINE 5 MG PO SCH (08:56)
[2018-01-11] MEDS: APIXABAN 5 MG TABLET PO SCH ×2 (08:56→21:33)
[2018-01-11] MEDS: CARVEDILOL 3.125 MG TABLET PO SCH ×2 (08:57→21:33)
[2018-01-11] MEDS: EPOETIN ALFA 10,000 UNITS/ML VIAL SQ SCH (08:57)
[2018-01-11] MEDS: ASCORBIC ACID 500 MG TABLET PO SCH (08:57)
[2018-01-11] MEDS: CHOLECALCIFEROL (VIT D3) 1,000 UNITS TABLET PO SCH (09:00)
[2018-01-11] MEDS: DOCUSATE SODIUM 100 MG CAPSULE PO SCH ×2 (09:00→21:33)
[2018-01-11] MEDS: MetFORMIN HCL 500 MG TABLET PO SCH ×2 (09:01→18:13)
[2018-01-11] MEDS: INSULIN LISPRO 100 UNITS/ML SQ PRN ×4 (09:19→21:37)
[2018-01-11 12:29] LABS: GLUCOMETER DEV NAME(LOC) 2WR 1B; GLUCOSE,POINT OF CARE 174 MG/DL (70-110)
[2018-01-11 16:38] VITALS: BP 126/67
[2018-01-11 17:59] LABS: GLUCOMETER DEV NAME(LOC) 2WR 1B; GLUCOSE,POINT OF CARE 174 MG/DL (70-110)
[2018-01-11] MEDS: TraZODone HCL 100 MG TABLET PO SCH (21:33)
[2018-01-11] MEDS: GABAPENTIN 300 MG CAPSULE PO SCH (21:33)
[2018-01-11] MEDS: SENNA 187 MG TABLET PO SCH (21:33)
[2018-01-11] MEDS: INSULIN GLARGINE,HUM.REC.ANLOG 100 UNITS/ML SQ SCH (21:35)
[2018-01-11 22:28] LABS: GLUCOMETER DEV NAME(LOC) 2WR 2E; GLUCOSE,POINT OF CARE 172 MG/DL (70-110)
[2018-01-12 00:23] VITALS: BP 110/53
[2018-01-12] MEDS: OMEPRAZOLE 20 MG CAPSULE PO SCH (06:32)
[2018-01-12 06:39] LABS: GLUCOMETER DEV NAME(LOC) 2WR 2E; GLUCOSE,POINT OF CARE 149 MG/DL (70-110)
[2018-01-12 07:45] VITALS: BP 114/61
[2018-01-12] MEDS: DOCUSATE SODIUM 100 MG CAPSULE PO SCH ×2 (09:00→21:00)
[2018-01-12] MEDS: CHOLECALCIFEROL (VIT D3) 1,000 UNITS TABLET PO SCH (09:05)
[2018-01-12] MEDS: BUMETANIDE 1 MG TABLET PO SCH ×2 (09:05→21:19)
[2018-01-12] MEDS: MULTIVITAMINS, THERAPEUTIC TABLET PO SCH (09:06)
[2018-01-12] MEDS: APIXABAN 5 MG TABLET PO SCH ×2 (09:06→21:19)
[2018-01-12] MEDS: ASCORBIC ACID 500 MG TABLET PO SCH (09:07)
[2018-01-12] MEDS: FERROUS SULFATE 325 MG EC TABLET PO SCH (09:07)
[2018-01-12] MEDS: CARVEDILOL 3.125 MG TABLET PO SCH ×2 (09:07→21:29)
[2018-01-12] MEDS: MetFORMIN HCL 500 MG TABLET PO SCH ×2 (09:09→17:05)
[2018-01-12] MEDS: DESLORATADINE 5 MG PO SCH (10:54)
[2018-01-12 12:59] LABS: GLUCOMETER DEV NAME(LOC) 2WR 1B; GLUCOSE,POINT OF CARE 171 MG/DL (70-110)
[2018-01-12 16:19] VITALS: BP 114/70
[2018-01-12 17:34] LABS: GLUCOMETER DEV NAME(LOC) 2WR 1B; GLUCOSE,POINT OF CARE 377 MG/DL (70-110)
[2018-01-12] MEDS: INSULIN LISPRO 100 UNITS/ML SQ PRN (18:45)
[2018-01-12] MEDS: SENNA 187 MG TABLET PO SCH (21:00)
[2018-01-12] MEDS: GABAPENTIN 300 MG CAPSULE PO SCH (21:19)
[2018-01-12] MEDS: TraZODone HCL 100 MG TABLET PO SCH (21:19)
[2018-01-12] MEDS: INSULIN GLARGINE,HUM.REC.ANLOG 100 UNITS/ML SQ SCH (21:25)
[2018-01-12 21:26] VITALS: BP 106/61
[2018-01-12 22:23] LABS: GLUCOMETER DEV NAME(LOC) 2WR 1B; GLUCOSE,POINT OF CARE 119 MG/DL (70-110)
[2018-01-12 23:19] VITALS: BP 110/60
[2018-01-13 05:21] LABS: BASOPHILS % (AUTO) 0.9 % (0.0-2.0); EOSINOPHILS % (AUTO) 3.3 % (1.0-6.0); HEMATOCRIT 23.5 % (41-53); LYMPHOCYTES # (AUTO) 2.3 K/uL (1.0-4.8); LYMPHOCYTES % (AUTO) 40.3 % (22.0-44.0); MEAN CORPUSCULAR HEMOGLOBIN 28.7 pg (26.0-34.0); MEAN CORPUSCULAR HGB CONC 33.8 G/dL (31.0-37.0); MEAN CORPUSCULAR VOLUME 85 fL (80-100); MONOCYTES # (AUTO) 0.5 K/uL (0.1-1.0); MONOCYTES % (AUTO) 8.9 % (2.0-9.0); NEUTROPHILS # (AUTO) 2.7 K/uL (1.8-7.7); NEUTROPHILS % (AUTO) 46.6 % (40.0-70.0); PLATELET COUNT (AUTO) 144 K/uL (150-450); RED BLOOD CELL COUNT(AUTO) 2.77 MIL/uL (4.50-5.90); RED CELL DISTRIBUTION WIDTH 19.2 % (11.5-14.5)
[2018-01-13 05:35] LABS: ANION GAP 4 mmol/L (8-16); CALCIUM, TOTAL 8.7 mg/dL (8.8-10.5); CARBON DIOXIDE 33 mmol/L (22-29); CHLORIDE 101 mmol/L (98-107); CREATININE 1.12 mg/dL (0.60-1.30); GLOMERULAR FILTR. RATE CALC > 60 mL/min (>60); GLUCOSE,RANDOM 99 mg/dL (70-110); POTASSIUM 3.6 mmol/L (3.5-5.1); SODIUM SERUM 138 mmol/L (136-145); UREA NITROGEN, BLOOD 35 mg/dL (7-18)
[2018-01-13] MEDS: OMEPRAZOLE 20 MG CAPSULE PO SCH (06:11)
[2018-01-13 06:39] LABS: GLUCOMETER DEV NAME(LOC) 2WR 1B; GLUCOSE,POINT OF CARE 87 MG/DL (70-110)
[2018-01-13 07:44] VITALS: BP 110/59
[2018-01-13] MEDS: CARVEDILOL 3.125 MG TABLET PO SCH ×2 (09:13→21:04)
[2018-01-13] MEDS: ASCORBIC ACID 500 MG TABLET PO SCH (09:13)
[2018-01-13] MEDS: DOCUSATE SODIUM 100 MG CAPSULE PO SCH ×2 (09:13→09:28)
[2018-01-13] MEDS: APIXABAN 5 MG TABLET PO SCH ×2 (09:14→21:04)
[2018-01-13] MEDS: DESLORATADINE 5 MG PO SCH (09:14)
[2018-01-13] MEDS: MULTIVITAMINS, THERAPEUTIC TABLET PO SCH (09:14)
[2018-01-13] MEDS: CHOLECALCIFEROL (VIT D3) 1,000 UNITS TABLET PO SCH (09:15)
[2018-01-13] MEDS: MetFORMIN HCL 500 MG TABLET PO SCH ×2 (09:15→17:20)
[2018-01-13] MEDS: BUMETANIDE 1 MG TABLET PO SCH ×2 (09:15→21:04)
[2018-01-13] MEDS: EPOETIN ALFA 10,000 UNITS/ML VIAL SQ SCH (09:16)
[2018-01-13] MEDS: FERROUS SULFATE 325 MG EC TABLET PO SCH (09:20)
[2018-01-13 12:36] LABS: GLUCOMETER DEV NAME(LOC) 2WR 2E; GLUCOSE,POINT OF CARE 199 MG/DL (70-110)
[2018-01-13] MEDS: INSULIN LISPRO 100 UNITS/ML SQ PRN ×3 (13:16→21:06)
[2018-01-13 15:02] VITALS: BP 114/59
[2018-01-13 17:54] LABS: GLUCOMETER DEV NAME(LOC) 2WR 1B; GLUCOSE,POINT OF CARE 248 MG/DL (70-110)
[2018-01-13 20:59] VITALS: BP 105/55
[2018-01-13] MEDS: SENNA 187 MG TABLET PO SCH ×2 (21:00→21:04)
[2018-01-13] MEDS: TraZODone HCL 100 MG TABLET PO SCH (21:04)
[2018-01-13] MEDS: GABAPENTIN 300 MG CAPSULE PO SCH (21:04)
[2018-01-13] MEDS: INSULIN GLARGINE,HUM.REC.ANLOG 100 UNITS/ML SQ SCH (21:06)
[2018-01-13 21:44] LABS: GLUCOMETER DEV NAME(LOC) 2WR 1B; GLUCOSE,POINT OF CARE 191 MG/DL (70-110)
[2018-01-14 00:35] VITALS: BP 106/50
[2018-01-14] MEDS ORDERED: INSU100V SQ (01:58)
[2018-01-14] MEDS ORDERED: GABA-531 PO (02:05)
[2018-01-14] MEDS ORDERED: DSS100 PO (02:05)
[2018-01-14] MEDS ORDERED: INSLAN SQ (02:05)
[2018-01-14] MEDS ORDERED: ASCO500 PO (02:05)
[2018-01-14] MEDS ORDERED: METF500T6 PO (02:05)
[2018-01-14] MEDS ORDERED: DESL5TAB PO (02:05)
[2018-01-14] MEDS ORDERED: VITAD1000 PO (02:05)
[2018-01-14] MEDS ORDERED: TRAZ-220 PO (02:05)
[2018-01-14] MEDS: OMEPRAZOLE 20 MG CAPSULE PO SCH (06:10)
[2018-01-14 06:30] LABS: GLUCOMETER DEV NAME(LOC) 2WR 2E; GLUCOSE,POINT OF CARE 81 MG/DL (70-110)
[2018-01-14 07:00] VITALS: BP 108/57
[2018-01-14] MEDS: APIXABAN 5 MG TABLET PO SCH (08:45)
[2018-01-14] MEDS: CHOLECALCIFEROL (VIT D3) 1,000 UNITS TABLET PO SCH (08:45)
[2018-01-14] MEDS: BUMETANIDE 1 MG TABLET PO SCH (08:45)
[2018-01-14] MEDS: DESLORATADINE 5 MG PO SCH (08:45)
[2018-01-14] MEDS: MULTIVITAMINS, THERAPEUTIC TABLET PO SCH (08:46)
[2018-01-14] MEDS: CARVEDILOL 3.125 MG TABLET PO SCH (08:46)
[2018-01-14] MEDS: FERROUS SULFATE 325 MG EC TABLET PO SCH (08:46)
[2018-01-14] MEDS: ASCORBIC ACID 500 MG TABLET PO SCH (08:47)
[2018-01-14] MEDS: MetFORMIN HCL 500 MG TABLET PO SCH (08:47)
[2018-01-14] MEDS: DOCUSATE SODIUM 100 MG CAPSULE PO SCH (08:50)
== END 2018-01-14 08:50 | disposition home or self-care (01) | DRG 299 ==
LOC: 2WR 12:25
PROVIDERS: ADMIT Physical Medicine & Rehabilitation; ATTEND Physical Medicine & Rehabilitation
DX: E11.52 Type 2 diabetes mellitus with diabetic peripheral angiopathy with gangrene (principal); E43 Unspecified severe protein-calorie malnutrition; N39.0 Urinary tract infection, site not specified; M86.8X6 Other osteomyelitis, lower leg; C78.89 Secondary malignant neoplasm of other digestive organs; L03.90 Cellulitis, unspecified; L97.429 Non-pressure chronic ulcer of left heel and midfoot with unspecified severity; I13.0 Hypertensive heart and chronic kidney disease with heart failure and stage 1 through stage 4 chronic kidney disease, or unspecified chronic kidney disease; I96 Gangrene, not elsewhere classified; G47.00 Insomnia, unspecified; N18.9 Chronic kidney disease, unspecified; E11.22 Type 2 diabetes mellitus with diabetic chronic kidney disease; E11.69 Type 2 diabetes mellitus with other specified complication; Z47.81 Encounter for orthopedic aftercare following surgical amputation; E11.319 Type 2 diabetes mellitus with unspecified diabetic retinopathy without macular edema; E11.40 Type 2 diabetes mellitus with diabetic neuropathy, unspecified; I50.9 Heart failure, unspecified; I25.10 Atherosclerotic heart disease of native coronary artery without angina pectoris; I48.91 Unspecified atrial fibrillation; E11.621 Type 2 diabetes mellitus with foot ulcer; R26.9 Unspecified abnormalities of gait and mobility; K21.9 Gastro-esophageal reflux disease without esophagitis; L97.519 Non-pressure chronic ulcer of other part of right foot with unspecified severity; D64.9 Anemia, unspecified; D69.2 Other nonthrombocytopenic purpura; E55.9 Vitamin D deficiency, unspecified; G89.29 Other chronic pain; F41.9 Anxiety disorder, unspecified; H61.20 Impacted cerumen, unspecified ear; I77.6 Arteritis, unspecified; G89.18 Other acute postprocedural pain; K59.00 Constipation, unspecified; L30.9 Dermatitis, unspecified; Z68.26 Body mass index [BMI] 26.0-26.9, adult; Z95.2 Presence of prosthetic heart valve; Z90.49 Acquired absence of other specified parts of digestive tract; Z95.0 Presence of cardiac pacemaker; Z89.511 Acquired absence of right leg below knee; Z87.891 Personal history of nicotine dependence; Z85.038 Personal history of other malignant neoplasm of large intestine; Z91.19 Patient's noncompliance with other medical treatment and regimen; Z83.3 Family history of diabetes mellitus; Z80.42 Family history of malignant neoplasm of prostate; Z80.1 Family history of malignant neoplasm of trachea, bronchus and lung
CPT/HCPCS: 82595; 82607; 82746; 83036; 83540; 83550; 83735; 84145; 84443; 85651; 86038; 86140; 86160; 86256; 86430; 87081; 87086; 87340; 87389; 89050; 92507; 92523; 97110; 97112; 97116; 97150; 97163; 97166; 97530; 97535; 99366; J0696; J0885; J1815; J2916; J7050; J7060